=== PATIENT | female | born 1985 | race Caucasian/White ===

== ENCOUNTER 2023-06-19 12:34 | Day surgery (SDC) | payer OTHER ==
[2023-06-19] MEDS ORDERED: Acetaminophen 500 MG TAB ONE (12:59)
[2023-06-19] MEDS ORDERED: Iron Sucrose Complex 500 MG in Sodium Chloride 0.9% 250 ML 250 ML IVPB SCH (13:15)
[2023-06-19] MEDS ORDERED: Acetaminophen 500 MG TAB PO SCH (13:15)
== END 2023-06-19 17:35 | disposition home or self-care (01) ==
LOC: CSHSDC 12:34
PROVIDERS: ATTEND Family Medicine
DX: O99.013 Anemia complicating pregnancy, third trimester (principal); D64.9 Anemia, unspecified; Z3A.00 Weeks of gestation of pregnancy not specified
CPT/HCPCS: 96365; 96366; J1756; J7050

== ENCOUNTER 2023-07-28 16:33 | Inpatient (IN) | payer OTHER ==
[2023-07-28 16:58] VITALS: BMI 40.8
[2023-07-28] MEDS ORDERED: hydrALAZINE 20 MG/ML VIAL ONE (17:14)
[2023-07-28] MEDS ORDERED: Magnesium Sulfate 20 gm/500 ml 20 GM/500 ML BAG ONE (17:14)
[2023-07-28] MEDS ORDERED: Calcium Gluc 4.6 MEQ/10 ML (100 MG/ML) SLOW IVP PRN (17:16)
[2023-07-28] MEDS ORDERED: Lorazepam 2 MG/ML VIAL SLOW IVP PRN (17:16)
[2023-07-28] MEDS ORDERED: hydrALAZINE 20 MG/ML VIAL SLOW IVP PRN ×2 (17:19)
[2023-07-28] MEDS ORDERED: Labetalol HCl 100 MG/20 ML VIAL SLOW IVP PRN ×2 (17:19)
[2023-07-28] MEDS ORDERED: Lidocaine 1% (PF) 30 ML VIAL ONE (17:29)
[2023-07-28] MEDS: Magnesium Sulfate 20 gm/500 ml 20 GM/500 ML BAG IVPB SCH (17:57)
[2023-07-28] MEDS ORDERED: Promethazine HCl 25 MG/ML VIAL IM PRN (18:01)
[2023-07-28] MEDS ORDERED: Ondansetron PF 4 MG/2 ML Vial IVP PRN (18:01)
[2023-07-28 18:36] LABS: ALT (SGPT) 18 U/L (8-55); AST (SGOT) 32 U/L (5-34); Albumin 3.6 g/dL (3.5-5.0); Alkaline Phosphatase 66 U/L (40-110); Anion Gap 15 mmol/L (10-20); BUN (Urea Nitrogen) 10 mg/dL (7.0-18.7); Bilirubin, Total Less than 0.2 mg/dL (0.2-1.2); Calc. Creatinine Clearance 187 mL/min (70-130); Calcium 8.6 mg/dL (7.8-10.44); Carbon Dioxide 21 mmol/L (22-29); Chloride 105 mmol/L (98-107); Estimated GFR 113; Globulin 3.2 g/dL (2.4-3.5); Glucose 86 mg/dL (70-105); Potassium 4.9 mmol/L (3.5-5.1); Protein, Total 6.8 g/dL (6.0-8.3); Sodium 136 mmol/L (136-145)
[2023-07-28 18:43] LABS: Hep B Surf Ag - L&D Non-Reactive S/CO (NonReactive)
[2023-07-28] MEDS ORDERED: Ibuprofen 800 MG TAB PO PRN (18:56)
[2023-07-28] MEDS ORDERED: Lactated Ringer's 1,000 ML IV SCH (19:00)
[2023-07-28 19:05] LABS: #Basophils 0.1 10x3/uL (0.0-0.2); #Eosinphils 0.3 10x3/uL (0.0-0.5); #Monocytes 0.6 10x3/uL (0.0-1.1); #Neutrophils 4.9 10x3/uL (1.5-8.4); %Basophils 0.6 % (0.0-2.0); %Monocytes 6.6 % (0.0-10.0); %Neutrophils 54.2 % (40.0-75.0); Hematocrit 36.1 % (34.9-44.5); Hemoglobin 11.3 g/dL (12.0-15.5); Mean Corpuscular HGB CONC 31.3 g/dL (32.0-36.0); Mean Corpuscular Hemoglobin 26.5 pg (27.0-33.0); Mean Corpuscular Volume 84.7 fl (81.6-98.3); Mean Platelet Volume 9.9 fl (7.4-10.4); Platelet Count 630 10x3/uL (150-450); RBC Distribution Width 17.4 % (11.5-14.5); Red Blood Cell (RBC) Count 4.26 10x6/uL (3.90-5.03)
[2023-07-28 19:08] LABS: Creatinine, Urine 162.62 mg/dL (47-110); Protein, Urine Random Quant Less than 10 mg/dL (1-14)
[2023-07-28] MEDS: Labetalol HCl 200 MG TAB PO SCH (19:19)
[2023-07-28] MEDS ORDERED: NIFEdipine XL 30 MG ER.TAB PO SCH (23:00)
[2023-07-29] MEDS ORDERED: NIFEdipine XL 30 MG ER.TAB PO SCH ×4 (00:45→21:00)
[2023-07-29] MEDS: Ibuprofen 800 MG TAB PO SCH ×2 (02:56→11:41)
[2023-07-29] MEDS: HYDROcodone/Acetaminophen 5/325 mg Tablet PO PRN ×2 (02:58→21:17)
[2023-07-29] MEDS: Magnesium Sulfate 20 gm/500 ml 20 GM/500 ML BAG IVPB SCH ×2 (03:00→12:14)
[2023-07-29] MEDS ORDERED: Sertraline 100 MG TAB PO SCH (09:00)
[2023-07-29] MEDS: Labetalol HCl 200 MG TAB PO SCH ×3 (09:32→21:16)
[2023-07-29] MEDS ORDERED: Metoclopramide HCl 10 MG/2 ML VIAL IVP PRN (12:47)
[2023-07-29] MEDS ORDERED: diphenhydrAMINE 50 MG/ML VIAL IVP PRN (12:48)
[2023-07-29] MEDS: Acetaminophen 325 MG TAB PO PRN (13:27)
[2023-07-29 20:32] VITALS: BP 157/78
[2023-07-30] MEDS: Labetalol HCl 200 MG TAB PO SCH (08:14)
[2023-07-30] MEDS: Ibuprofen 800 MG TAB PO SCH (08:14)
[2023-07-30] MEDS: Acetaminophen 325 MG TAB PO PRN (08:14)
== END 2023-07-30 09:08 | disposition home or self-care (01) | DRG 776 ==
LOC: CSHLD/OP 16:33 → CSHLD 17:19
PROVIDERS: ADMIT Emergency Medicine; ATTEND Emergency Medicine
DX: O11.5 Pre-existing hypertension with pre-eclampsia, complicating the puerperium (principal); F32.A Depression, unspecified; O99.345 Other mental disorders complicating the puerperium
CPT/HCPCS: 36415; 80053; 82570; 84156; 85025; 87340; 99285; J0360; J1200; J2765; J3475; J7120